=== PATIENT | female | born 1990 | race Caucasian/White ===

== ENCOUNTER 2017-03-09 13:03 | Emergency (ER) | payer OTHER ==
[2017-03-09 13:11] VITALS: BP 117/71
--- NOTE | 2017-03-09 13:19 | ER Document Report ---
ED Oral Problem - General Chief Complaint: Jaw Pain Stated Complaint: JAW PAIN Time Seen by Provider: 03/09/17 13:14 Mode of Arrival: Ambulatory Information source: Patient TRAVEL OUTSIDE OF THE [place] IN LAST 30 DAYS: No - HPI Patient complains to provider of: Jaw pain - This is a 26-year-old female presents to the emergency room today stating she has discomfort to her right lower jaw consistent with the TMJ that she is experience over the last 4-5 years per - Related Data Allergies/Adverse Reactions: No Known Allergies Allergy (Verified 03/09/17 13:07) Past Medical History - General Information source: Patient - Social History Smoking Status: Never Smoker Cigarette use (# per day): No Chew tobacco use (# tins/day): No Smoking Education Provided: No Family History: None Patient has suicidal ideation: No Patient has homicidal ideation: No Renal/ Medical History: Denies: Hx Peritoneal Dialysis Review of Systems - Review of Systems Constitutional: No symptoms reported EENT: No symptoms reported Cardiovascular: No symptoms reported Respiratory: No symptoms reported Gastrointestinal: No symptoms reported Genitourinary: No symptoms reported Female Genitourinary: No symptoms reported Musculoskeletal: No symptoms reported Skin: No symptoms reported Hematologic/Lymphatic: No symptoms reported Neurological/Psychological: No symptoms reported Physical Exam - Vital signs Vitals: Temp Pulse Resp BP Pulse Ox 98.6 F 92 16 117/71 99 03/09/17 13:07 03/09/17 13:07 03/09/17 13:07 03/09/17 13:07 03/09/17 13:07 Interpretation: Normal - General General appearance: Appears well, Alert - HEENT Head: Normocephalic, Atraumatic Eyes: Normal Pupils: PERRL Mouth/Lips: Other - Patient states she has spasm in the right side of her mandible she does have a history of TMJ she does have full range of motion upon flexing the mandible. - Respiratory Respiratory status: No respiratory distress Chest status: Nontender Breath sounds: Normal Chest palpation: Normal - Cardiovascular Rhythm: Regular Heart sounds: Normal auscultation Murmur: No - Abdominal Inspection: Normal Distension: No distension Bowel sounds: Normal Tenderness: Nontender Organomegaly: No organomegaly - Back Back: Normal, Nontender - Extremities General upper extremity: Normal inspection, Nontender, Normal color, Normal ROM , Normal temperature General lower extremity: Normal inspection, Nontender, Normal color, Normal ROM , Normal temperature, Normal weight bearing. No: Glenn's sign - Neurological Neuro grossly intact: Yes Cognition: Normal Orientation: AAOx4 Reese Coma Scale Eye Opening: Spontaneous Juliette Coma Scale Verbal: Oriented Reese Coma Scale Motor: Obeys Commands Reese Coma Scale Total: 15 Speech: Normal Motor strength normal: LUE, RUE, LLE, RLE Sensory: Normal - Psychological Associated symptoms: Normal affect, Normal mood - Skin Skin Temperature: Warm Skin Moisture: Dry Skin Color: Normal Course - Re-evaluation Re-evalutation: 03/09/17 13:15 Discussion was had regarding TMJ the use of her bite guard which she has not used in the urine a half and medication to help her with the spasm. Patient is breast-feeding she was advised that Robaxin has been unknown for breast-feeding stated that she currently takes Flexeril every day. She was advised to clearly not take both medications together however there were both in the same category. And she was advised to follow-up with her [employer] regarding that. Is advised that she did not breast-feed I did write her the prescription and suggested that she would need to make that choice. Obviously using the bite guard would be highly advisable. 03/09/17 13:16 - Vital Signs Vital signs: Temp Pulse Resp BP Pulse Ox 98.6 F 92 16 117/71 99 03/09/17 13:07 03/09/17 13:07 03/09/17 13:07 03/09/17 13:07 03/09/17 13:07 Discharge - Discharge Clinical Impression: TMJ (temporomandibular joint syndrome) Disposition: HOME, SELF-CARE Additional Instructions: Patient has TMJ. Patient does not fact have a bite guard for such and is advised to use that as directed by her french cord binder which she has not been compliant with in the near past. She was provided with a prescription for Robaxin was advised that the safety while breast-feeding is unknown. Was also advised that the Flexeril that she is currently taking also has an unknown safety ricks while breast-feeding. She is clearly advised not to take both medications together. Advised follow-up with [employer] regarding safety of the prescription while breast- feeding. Advised to go back to using her bite guard. Follow-up with private doctor in 1 to 2 days for final radiology readings please return to the emergency room for any change worsening condition. Follow up with private M.D. for all other routine health care needs. Prescriptions: Methocarbamol [Robaxin 750 mg Tablet] 750 mg PO ASDIR PRN #40 tablet PRN Reason:
== END 2017-03-09 13:27 | disposition home or self-care (01) ==
LOC: ER 13:03
DX: M26.601 Right temporomandibular joint disorder, unspecified (principal)
CPT/HCPCS: 99283